=== PATIENT | female | born 1980 | race Caucasian/White ===

== ENCOUNTER 2025-01-24 06:25 | Day surgery (SDC) | payer OTHER ==
[2025-01-21 14:05] LABS: Urine Bacteria None Seen /HPF (<20); Urine Bilirubin NEGATIVE (Negative); Urine Blood Negative (Negative); Urine Clarity Extremely Turbid (Clear); Urine Color Light-Yellow (Yellow); Urine Culture Reflex Order NOT NEEDED; Urine Glucose NEGATIVE (Negative); Urine Ketones NEGATIVE (Negative); Urine Microscopic Reflex YN ORDER UMIC; Urine Mucus Slight /HPF (None Seen); Urine Nitrite NEGATIVE (Negative); Urine Protein NEGATIVE (Negative); Urine RBC None Seen /HPF (None Seen); Urine Urobilinogen 1+ (Normal); Urine WBC None Seen /HPF (<5)
[2025-01-21 14:06] LABS: Absolute Eosinophils 0.1 K/uL (0-0.5); Absolute Lymphocytes (CBC) 1.9 K/uL (0.7-4.9); Absolute Monocytes 0.5 K/uL (0.1-1.3); Absolute Neutrophil 5.5 K/uL (1.8-8.0); Basophils % 0.6 % (0-1.3); Hematocrit 36.5 % (36.0-45.0); Hemoglobin 13.2 g/dL (12.0-15.0); Lymphocytes % 23.5 % (15.3-44.8); MCH 34.1 pg (27.0-35.0); MCHC 36.2 g/dL (32.0-36.0); MCV 94.3 fL (80-100); MPV 7.4 fL (7.6-11.3); Monocytes % 6.1 % (3.3-12.3); Neutrophils % 68.8 % (41.7-73.7); Nucleated Red Blood Cells % 0.1 % (0-0); Platelets 305 thou/uL (152-406); RBC Red Blood Cell Count 3.87 M/uL (3.86-4.86); Red Cell Distribution Width 12.6 % (12.1-15.2)
[2025-01-24] MEDS: SCOPOLAMINE HYDROBROMIDE PATCH TD ONE (06:59)
[2025-01-24] MEDS: Ringers Lactate 1,000 ML IV ONE (06:59)
[2025-01-24] MEDS ORDERED: dexAMETHasone 10 MG/ML VIAL ONE (07:04)
[2025-01-24] MEDS ORDERED: FENTANYL CITR 100 MCG/2 ML ONE ×2 (07:04→08:46)
[2025-01-24] MEDS ORDERED: LIDOCAINE 1% MPF 5 ML VIAL ONE (07:04)
[2025-01-24] MEDS ORDERED: propofoL 200 MG/20 ML VIAL IV ONE (07:04)
[2025-01-24] MEDS ORDERED: MIDAZOLAM HCL 2 MG/2 ML INJ ONE (07:04)
[2025-01-24] MEDS ORDERED: ROCURONIUM 50 MG/5 ML VIAL IV ONE (07:04)
[2025-01-24] MEDS ORDERED: ONDANSETRON 4 MG/2 ML VIAL ONE (07:04)
[2025-01-24] MEDS: BUPIVACAINE 0.25% PF 30 ML VIAL ONE (07:49)
[2025-01-24] MEDS ORDERED: CEFAZOLIN SODIUM 1 GM/VIAL ONE (07:59)
[2025-01-24] MEDS: CEFAZOLIN SODIUM 1 GM/VIAL ONE (08:00)
[2025-01-24] MEDS ORDERED: KETOROLAC 30 MG/ML INJ ONE (09:21)
[2025-01-24] MEDS ORDERED: Ringers Lactate 1,000 ML IV ONE (09:29)
[2025-01-24] MEDS ORDERED: Mastisol Adhesive Liq ONE (09:44)
[2025-01-24] MEDS ORDERED: PROMETHAZINE INJ 25 MG/ML AMP IV PRN (09:59)
[2025-01-24] MEDS ORDERED: HYDROCODONE/APAP 5/325 MG TAB PO PRN (09:59)
[2025-01-24] MEDS ORDERED: MEPERIDINE HCL 25 MG/ML SYR IM PRN (09:59)
[2025-01-24] MEDS ORDERED: IBUPROFEN 200 MG TAB PO PRN (09:59)
[2025-01-24] MEDS ORDERED: PROMETHAZINE 25 MG TABLET PO PRN (09:59)
[2025-01-24] MEDS ORDERED: CYCLOBENZAPRINE 10 MG TAB PO PRN (10:00)
[2025-01-24 10:03] VITALS: O2SAT 100
--- NOTE | 2025-01-24 10:10 | P.BOP ---
Preoperative diagnosis: AUB-O/A, Dysmenorrhea Postoperative diagnosis: same, () endometriosis bilateral lat hartman, right ant lateral wall Primary procedure: Hysteroscopy Ablation, Lapsc BS Extensive endo rx, Left ureterolysis Secondary procedure: lysis of uterine adhesions Manager Presentation: Nargis Bailon Estimated blood loss: 25 Specimen: bilateral tubes, left lat wall, USL, timo-ureteric,Rt ant post lat wall Findings: Lf lat wall timo-ureteric, lat wallUSL, Rt lat wall, broad lat wall Anesthesia: General Complications: None Transferred to: Recovery Room Condition: Good
[2025-01-24 11:29] VITALS: BP 124/71; TEMP 97.8
[2025-01-24] MEDS ORDERED: HOME MED 1 EA UNK (Trazodone Hcl [Trazodone Hcl] 100 MG Tablet) PO SCH (21:00)
--- NOTE | 2025-01-25 03:30 | OP ---
Date of Procedure: 01/24/2025 Surgeon: Monalisa Ovalles MD Feed Inspection Supervisor: Nargis Domingo. Preoperative Diagnoses: Menorrhagia, dysmenorrhea, and pelvic pain. Postoperative Diagnoses: Menorrhagia, dysmenorrhea, pelvic pain, and stage 3 endometriosis of the pe lvic peritoneum with bilateral lateral hartman, right anterior lateral wall/broad ligament or mesosalpi nx. Then, right uterosacral ligament and then posterior vaginal wall peritoneum. The patient did abel ve nodular deep infiltrating endometriosis. Procedures Performed: 1. Diagnostic hysteroscopy, endometrial ablation with NovaSure. 2. Diagnostic laparoscopy, bilateral salpingectomy. 3. Extensive endometriosis excision. 4. Left ureterolysis. 5. Lysis of uterine adhesions from the anterior abdominal wall, which likely has endometrium or myome trium with possible endometriotic tissue. Estimated Blood Loss: Minimal, less than 25. Specimens: Endometriosis of the left lateral wall uterosacral ligament and periureter. Then, right lateral wall, posterior and right lateral wall anterior. Then, there was nodular endometriosis from the left lateral wall as a separate specimen and then bilateral tubes and anterior abdominal wall and uterine adhesions. Findings: Endometriosis was found that was nodular in the distal lateral wall closer to the distal u reter between the ureter and the uterosacral ligament as well as nodularity of the uterosacral ligame nt on the left side. There were implants all completely along the left lateral wall between the broa d ligament and the uterosacral ligament and this all had to be excised. Then, the right lateral wall in the posterior aspect, which is immediately lateral to the ureter and between the uterine vessels and the broad ligament, there was a significant portion of peritoneum with endometriosis mostly super ficial and then there was an endometriotic implant in the posterior peritoneum on the posterior vagin al wall, which was fulgurated. There was right lateral wall endometriosis on the mesosalpinx or broa d ligament immediately lateral to the round ligament. All these were excised. Indications: The patient is a 44-year-old with heavy menstrual bleeding and cramping, significant dy spareunia as well and pelvic pain, so she was evaluated with ultrasound, endometrial sampling. The p atient wanted to proceed with preservation of her uterus, endometrial ablation for treatment of bleed ing, and laparoscopy for removal of tubes to prevent any hydro . She was re-consented in the preoperative area with her friend by her side. Description Of Procedure: She was taken to the OR and placed in supine fashion. 2 g of Ancef were g iven. SCDs were placed. Abdomen was prepped with ChloraPrep; vulva, vagina, and perineum with Betad ine and draped in a sterile fashion. Bo was placed to drain the bladder and speculum was placed t o expose the cervix. Anterior lip was grasped with 2 Allis clamps, dilated to 16-Slovenian. Diagnostic SlimLine hysteroscope used to measure the uterus and uterine cavity was 4.5 cm, although sounding le ngth was 8.5. Under direct visualization, the scope was removed and a NovaSure ablation device was i nserted and deployed. 2.8 cm cavity width and length was 4.5 as dictated. Then, once the ablation c ycle was started, the drainage of the blood from the cavity was not effective into the machine and th is blocked the vacuum and device failed to work after 50 seconds of the ablation, so this device was undeployed and after making at least 3 attempts to evacuate the clot, changed the position and re-dep loyed the fan. The second device was taken, primed, and inserted and ablation was completed in a tarik y smooth fashion in another 50 seconds. So, the cavity length was 4.5, width 2.8, time was total of 1 minute and 40 seconds, then power setting was 67 valles. Diagnostic scope was re-introduced after the fan was undeployed and the NovaSure was removed with exc ellent ablation effect in the global endometrial cavity. Scope was removed after rinsing out the cav ity and uterine manipulator was introduced and fixed in place. Bo was already placed. 1 cm infraumbilical incision was made with a scalpel after injecting 0.25% Marcaine at the skin and f ascia. Fascia was incised, tagged with 0 Vicryl sutures. Peritoneum was entered sharply. Tyesha in troduced after adequate insufflation. 5 left lower quadrant port was placed under direct vision. Th ere were significant uterine adhesions to the anterior abdominal wall. Lysis of uterine adhesions likely endometriotic tissue from this area. Dissection was performed along the interface of the uterus and the anterior abdominal wall with the L igaSure sharply as well as with cautery. Then, once all adhesions were taken down to the level of th e bladder flap, the bladder adhesions were taken down the peritoneum. Then, I was able to visualize the tissue adhered to the anterior abdominal wall and this was excised completely and handed out for permanent pathology to rule out any endometriosis. Suprapubic 5 port was placed when I excised the above and continued to use this for the rest of the c ase. Bilateral salpingectomy: This was done by starting at the fimbriated end and taking down the entire mesosalpinx and the tube. Both tubes were removed in a similar fashion and handed off for permanent pathology. The endometriosis of the left lateral wall was started. Left ureterolysis was performed by opening up the peritoneum between the ureter and the IP ligament a nd the peritoneal dissection was carried superiorly right at the junction of the broad ligament to th e lateral wall and once this was taken down all the way to the level of lower 1/3 of the ureter, then peritoneum was opened up. The ureter was identified and the ureter was dissected medially from the endometriosis and the broad ligament and then it was dissected laterally from the lateral structures of the pelvic sidewall. Then, the ureter was safeguarded and the dissection was taken down further w here there was nodular endometriosis and carefully the internal iliac artery was identified and this followed to the level of the uterine artery. Dissection of the uterine artery and the distal ureter was were significantly scarred. Once these planes were opened up and dissection was perfo rmed to isolate both of these structures lateral to the ureter, then dissection was performed at the level of the ureteric tunnel the ureter and the uterine vessels from the ureter and then m edially between the ureter and the uterosacral ligament. Once the rest of the dissection was carried to separate the ureter from the retroperitoneal fibrosis of the nodular infiltrating endometriosis s having off the periureteric tissue from endometriosis and scar, the ureter was freed up. Endometriosis excision on the lateral wall: This was carried by using sharp scissors and bipolar cau gertrudis with the LigaSure and this was stripped off and handed off for pathology. Then, the nodular end ometriosis was excised from its base by carefully dissecting all the uterine vessels including the ve ins and arteries and carefully taken down the capillaries and cauterizing them for hemostasis and exc ising the nodular implants. These were also then attached to the uterosacral ligament, so I was care ful to shave them off without cutting the uterosacral ligament. However, there could be some degree of damage to the uterosacral weakening. The implants medial to the uterosacral that were picked up and excised. There was a posterior peritoneal implant in the posterior wall of the vagina and patient also has pel efra pain. This area was very tiny and therefore fulgurated adequately without any concern of residua l endometriosis or infiltration into the posterior vaginal wall. The wall was opened up between the lateral portion of the broad ligament and the lateral wall. Disse ction was carried towards the ureter and peritoneal implant excised off superior and lateral to the u reter. Then, rest of the peritoneum was stripped off. The implant was handed out for permanent path ology. The right lateral mesosalpinx was opened up, lateral wall opened up, and peritoneal implant excised a nd handed off for permanent pathology. Thorough irrigation and suction were performed as adequate, hemostasis in the entire peritoneal cavit y, and complete excision of lesions that were visible. No evidence of electrical, mechanical, or the rmal injury to the ureters. All the trocars were removed after gas was desufflated. The patient was signed out. Toradol was given. All the ports were removed. Fascia at the umbilicus was closed wit h tagged 0 Vicryl sutures tied to each other and 4-0 Monocryl sutures for closure of all skin incisio ns. The uterine manipulator and Bo were removed. Instrument, needle, and sponge counts were leidy ect at the end of the case. The patient tolerated the procedure well and she was taken to the [facility] room in stable condition and her friend was debriefed about her procedure and she will have ____ appointment and explanation when she comes back. I do not anticipate to give her any additional therapy with med ication. EVERETT/RODRIGO Voice ID: [id number] Report ID: [id number]
[2025-01-25] MEDS ORDERED: SERTRALINE HCL 100 MG TAB PO SCH (09:00)
[2025-01-25] MEDS ORDERED: clonazePAM 0.5 MG TAB PO PRN (10:00)
== END 2025-01-24 11:20 | disposition home or self-care (01) ==
LOC: OR 06:25
PROVIDERS: ADMIT Obstetrics & Gynecology; ATTEND Obstetrics & Gynecology
PROC: 0UT74ZZ Resection of Bilateral Fallopian Tubes, Percutaneous Endoscopic Approach (ICD-10-PCS; 2025-01-24)
PROC: 0DBW4ZZ Excision of Peritoneum, Percutaneous Endoscopic Approach (ICD-10-PCS; 2025-01-24)
PROC: 0UB44ZZ Excision of Uterine Supporting Structure, Percutaneous Endoscopic Approach (ICD-10-PCS; 2025-01-24)
PROC: 0UBG4ZZ Excision of Vagina, Percutaneous Endoscopic Approach (ICD-10-PCS; 2025-01-24)
PROC: 0WBF4ZZ Excision of Abdominal Wall, Percutaneous Endoscopic Approach (ICD-10-PCS; 2025-01-24)
PROC: 0TN74ZZ Release Left Ureter, Percutaneous Endoscopic Approach (ICD-10-PCS; 2025-01-24)
PROC: 0U5B8ZZ Destruction of Endometrium, Via Natural or Artificial Opening Endoscopic (ICD-10-PCS; principal; 2025-01-24 07:30)
DX: N92.0 Excessive and frequent menstruation with regular cycle (principal); N94.6 Dysmenorrhea, unspecified; R10.2 Pelvic and perineal pain; N80.392 Deep endometriosis of the pelvic peritoneum, other specified sites; N80.3C1 Endometriosis of the right uterosacral ligament, unspecified depth; N80.42 Endometriosis of rectovaginal septum with involvement of vagina
CPT/HCPCS: 85025; 81001; 36415; 86900; 86850; 86901; 88302; 88305; 58563; 58700; 58662; 57061; 50949; J2704; J2003; J2250; J3010 ×2; J1100; J2405; J7120 ×2; J0690 ×2